=== PATIENT | male | born 1960 | race Caucasian/White ===

== ENCOUNTER 2018-11-06 18:55 | Emergency (ER) | payer OTHER ==
[~2018-11-06] VITALS: Ht 170.2 cm; Wt 65.8 kg
[2018-11-06] MEDS ORDERED: PRINIVIL20 MG PO (19:20)
[2018-11-06] MEDS ORDERED: NORVASC5 MG PO (19:21)
== END 2018-11-07 00:02 | disposition home or self-care (01) ==
LOC: ER 18:55
DX: R14.3 Flatulence (principal); K59.09 Other constipation